=== PATIENT | male | born 1975 | race Caucasian/White ===

== ENCOUNTER → 2018-02-06 | Outpatient (CLI) | payer BC ==
--- NOTE | 2018-02-06 16:58 | XR ---
Lumbar spine HISTORY: Back pain, lifting injury 2 weeks prior 3 views of the lumbar spine Lumbar vertebral bodies show preserved height, alignment, and bone mineralization. Rudimentary rib funez spected L1 on the left. There is multilevel spondylosis. Mild loss of disc height present at the inte rvertebral levels L5-S1 and L1-2. No evident paraspinal mass. IMPRESSION: Degenerative disc disease.
== END | disposition home or self-care (01) ==
LOC: RADXRMAIN 14:37
PROVIDERS: ATTEND Physician Assistant
DX: M51.36 Other intervertebral disc degeneration, lumbar region (principal)
CPT/HCPCS: 72100

== ENCOUNTER → 2018-02-27 | Outpatient (CLI) | payer OTHER ==
--- NOTE | 2018-02-27 22:36 | MR ---
EXAMINATION TYPE: MR lumbar spine wo con DATE OF EXAM: 02/27/2018 COMPARISON: Lumbar spine x-ray February 06, 2018. HISTORY: LBP, radiates into buttocks x 1 mo per patient. Intervertebral disc degeneration per order TECHNIQUE: Multiplanar, multisequence imaging of the lumbar spine is performed without IV contrast. FINDINGS: Sagittal images of the lumbar spine show vertebral body heights and alignment to appear sat isfactory. There is mild disc desiccation L4-L5 and L5-S1 levels. Mild disc space narrowing L5-S1 lev el is seen. Small posterior disc herniations are seen L4-L5 and L5-S1 levels on sagittal images. Ther e is mild disc space narrowing with mild anterior spurring at L1-L2 level. The conus medullaris is lo w in position ending at L2 level without abnormal signal. The bone marrow signal intensity is within normal limits. Axial images at the T12-L1 level appear within normal limits. Axial images at L1-L2 level show mild broad disc bulge minimally effaces the anterior thecal sac, jonah ateral neural foramina are patent. Axial images at L2-L3 and L3-L4 levels are felt within normal limits. Axial images at the L4-L5 level shows broad-based left paracentral disc protrusion with small inferio r extrusion component, there is effacement of the anterolateral thecal sac, bilateral neural foramina are patent. Axial images at L5-S1 level shows central disc protrusion but spinal canal is preserved and bilateral neural foramina are patent. No suspicious retroperitoneal findings are seen. . IMPRESSION: Multilevel degenerative changes at L1-L2, L4-L5, and L5-S1 levels as detailed above.
== END | disposition home or self-care (01) ==
LOC: RADMRIMAIN 21:27
PROVIDERS: ATTEND Family Medicine
DX: M48.07 Spinal stenosis, lumbosacral region (principal); M51.26 Other intervertebral disc displacement, lumbar region; M47.817 Spondylosis without myelopathy or radiculopathy, lumbosacral region
CPT/HCPCS: 72148